=== PATIENT | male | born 1990 | race Caucasian/White ===

== ENCOUNTER 2018-11-28 06:58 | Emergency (ER) | payer OTHER ==
[2018-11-28] MEDS ORDERED: Zofran 4 MG/2 ML VIAL IV ONE (07:16)
[2018-11-28] MEDS ORDERED: PROTONIX 40 MG IV IV ONE (07:16)
[2018-11-28] MEDS ORDERED: Sodium Chloride 0.9% 1000 ML 1,000 ML IV STA (07:16)
[2018-11-28] MEDS ORDERED: Pepcid 20 MG VIAL IV ONE ×2 (07:19→07:42)
[2018-11-28] MEDS ORDERED: Sodium Chloride 0.9% 1000 ML 1,000 ML ONE (07:42)
[2018-11-28] MEDS ORDERED: Zofran 4 MG/2 ML VIAL ONE (07:42)
[2018-11-28] MEDS ORDERED: Protonix 40MG Tablet ONE (07:42)
[2018-11-28] MEDS ORDERED: Protonix 40MG Tablet PO ONE (07:44)
[2018-11-28 07:48] LABS: BASOPHIL % 0.3 % (0.0-0.4); Basophil (Absolute #) 0.04 (0-0.4); Eosinophil % 2.8 % (0.00-5.0); Eosinophil (Absolute #) 0.33 (0-0.5); Granulocyte Absolute (ANC) 8.27 (1.4-6.9); Granulocytes % 69.3 % (36.0-66.0); Hemoglobin 15.6 gm/dl (12.5-18.0); Lymphocyte (Absolute #) 2.59 (1.0-4.6); Lymphocytes % 21.7 % (24.0-44.0); Mean Cell Volume 88.3 fl (78-100); Mean Corpuscular Hgb Concent. 36.3 g/dl (32-36); Mean Platelet Volume 9.9 fl (6-9.5); Monocytes % 5.9 % (0.0-12.0); Platelet Count 223 K/mm3 (150-450); Red Blood Count 4.87 M/mm3 (4.1-5.6); Red Cell Distribution Width 12.1 % (11.5-14.0); White Blood Count 11.9 K/mm3 (4.0-10.5)
[2018-11-28 08:00] LABS: ALBUMIN 4.9 g/dL (3.5-5.0); ALKALINE PHOSPHATASE 57 U/L (38-126); BLOOD UREA NITROGEN 19 mg/dL (9-20); CHLORIDE 107 mmol/L (98-107); Calcium 10.3 mg/dL (8.4-10.2); Carbon Dioxide 25 mmol/L (22-30); Creatinine 1 0.87 mg/dL (0.66-1.25); Glucose 93 mg/dL (74-106); Potassium 3.7 mmol/L (3.5-5.1); SGOT/AST 25 U/L (17-59); SGPT/ALT 26 U/L (0-50); SODIUM 141 mmol/L (137-145); Total Protein 8.3 g/dL (6.3-8.2)
[2018-11-28 08:02] LABS: Appearance CLEAR (CLEAR); Bilirubin NEGATIVE (NEGATIVE); Blood NEGATIVE Ery/ul (0-5); Glucose NEGATIVE (NEGATIVE); Ketones NEGATIVE (NEGATIVE); Leukocyte Esterase NEGATIVE (NEGATIVE); Mucus SLIGHT /HPF (NEGATIVE); Nitrite NEGATIVE (NEGATIVE); Protein,Urine Dip NEGATIVE (Negative); Specific Gravity 1.016 (1.005-1.025); Urobilinogen NEGATIVE mg/dL (0-1)
[2018-11-28] MEDS ORDERED: Cipro 500 MG PO STA (08:54)
[2018-11-28] MEDS ORDERED: Cipro 500 MG ONE (09:01)
--- NOTE | 2018-11-28 09:01 | ERPHSYRPT ---
- History of Present Illness Source: patient Exam Limitations: no limitations Patient Subjective Stated Complaint: pt reports pain to the left testicle starting 3 days ago, pt denies any urinary symptoms. pt also reports approx 3 weeks ago he began having nausea and diarrhea. Triage Nursing Assessment: pt is aox3, pupils perrl, pt appears in pain, afebrile, resps easy and non labored, radial pulses strong and equal, abd soft non tender, bowel sounds present and normoactive x 4, pt skin pale warm dry. no swelling or redness noted to the scrotum, skin is intact, no drainage noted. Physician History: Pt is a 28 y/o male that presented to the ED with pain in his L testicle. Pt states, had the pain for about 3 weeks, and now got worse. He woke up with the pain today, and could not tolerate it anymore. Pt denies F/C/S. Has some dysuria, but no frequency or urgency. No hematiria. No CVX tenderness. Timing/Duration: week(s) Activites at Onset: none Quality: sharpness, stabbing Onset Location: left testicle Pain Radiation: none Severity of Pain-Max: moderate Severity of Pain-Current: moderate Modifying Factors: Improves With: nothing (Pt refuses all pain meds) Associated Symptoms: dysuria Prior abdominal problems: none Allergies/Adverse Reactions: Penicillins Allergy (Verified 11/28/18 07:40) Sulfa (Sulfonamide Antibiotics) Allergy (Verified 11/28/18 07:40) Hx Tetanus, Diphtheria Vaccination/Date Given: Yes Hx Influenza Vaccination/Date Given: No Hx Pneumococcal Vaccination/Date Given: No Immunizations Up to Date: Yes - Past Medical History Pertinent Past Medical History: Yes Other Medical History: tumors removed from scrotum as an , benign tumors removed from back. psoriasis - Past Surgical History Past Surgical History: Yes - Social History Smoking Status: Current every day smoker Drug Use: none Patient Lives Alone: No - Review of Systems Constitutional: No Fever, No Chills Eyes: No Symptoms Ears, Nose, & Throat: No Symptoms Respiratory: No Cough, No Dyspnea Cardiac: No Chest Pain, No Edema, No Syncope Abdominal/Gastrointestinal: No Abdominal Pain, No Nausea, No Vomiting, No Diarrhea Genitourinary Symptoms: Dysuria, Testicle Pain (On the L) Musculoskeletal: No Back Pain, No Neck Pain Neurological: No Dizziness, No Focal Weakness, No Sensory Changes - Nursing Vital Signs Nursing Vital Signs: Initial Vital Signs Temperature 98 F 11/28/18 07:05 Pulse Rate 83 11/28/18 07:05 Respiratory Rate 20 11/28/18 07:05 Blood Pressure 142/87 11/28/18 07:05 O2 Sat by Pulse Oximetry 97 11/28/18 07:05 Pain Scale Pain Intensity 6 - Physical Exam General Appearance: no apparent distress, alert Eye Exam: PERRL/EOMI Ears, Nose, Throat Exam: pharynx normal, moist mucous membranes Neck Exam: normal inspection, supple Respiratory Exam: normal breath sounds, lungs clear Cardiovascular Exam: regular rate/rhythm, No edema Gastrointestinal/Abdomen Exam: soft, No tenderness Male Genital Exam: normal genitalia, no hernia, testicular tenderness (L) Back Exam: normal inspection, No CVA tenderness Extremity Exam: normal inspection, normal range of motion, No pedal edema Neurologic Exam: alert, oriented x 3, cooperative, sensation nml, No motor deficits SpO2: 98 - Radiology Ultrasound Exam Scrotal Ultrasound: discussed w/radiologist (mild orchitis on the L) Ordered Tests: Active Orders 24 hr Category Date Time Status IV Insertion STAT Care 11/28/18 07:42 Active TESTICLE [US] Stat Exams 11/28/18 Ordered CBC W DIFF Stat Lab 11/28/18 07:42 Completed CMP Stat Lab 11/28/18 07:42 Completed UA W/RFX UR CULTURE Stat Lab 11/28/18 07:42 Completed Medication Summary Generic Name Dose Route Start Last Admin Trade Name Freq PRN Reason Stop Dose Admin Ciprofloxacin 500 mg 11/28/18 08:54 Cipro 500 Mg PO 11/28/18 08:55 ONCE STA Discontinued Medications Generic Name Dose Route Start Last Admin Trade Name Freq PRN Reason Stop Dose Admin Famotidine 40 mg 11/28/18 07:19 11/28/18 07:50 Pepcid 20 Mg Vial IV 11/28/18 07:20 40 mg STAT ONE Administration Famotidine Confirm 11/28/18 07:42 Pepcid 20 Mg Vial Administered 11/28/18 07:43 Dose 40 mg IV .STK-MED ONE Sodium Chloride 1,000 mls @ 999 mls/hr 11/28/18 07:16 11/28/18 07:49 Sodium Chloride 0.9% 1000 Ml IV 11/28/18 08:16 999 mls/hr .Q1H1M STA Administration Sodium Chloride Confirm 11/28/18 07:42 Sodium Chloride 0.9% 1000 Ml Administered 11/28/18 07:43 Dose 1,000 mls @ ud .ROUTE .STK-MED ONE Ondansetron HCl 4 mg 11/28/18 07:16 11/28/18 07:50 Zofran 4 Mg/2 Ml Vial IV 11/28/18 07:17 4 mg STAT ONE Administration Ondansetron HCl Confirm 11/28/18 07:42 Zofran 4 Mg/2 Ml Vial Administered 11/28/18 07:43 Dose 4 mg .ROUTE .STK-MED ONE Pantoprazole Sodium 40 mg 11/28/18 07:16 11/28/18 07:56 Protonix 40 Mg Iv IV 11/28/18 07:17 Not Given STAT ONE Pantoprazole Sodium Confirm 11/28/18 07:42 Protonix 40mg Tablet Administered 11/28/18 07:43 Dose 40 mg .ROUTE .STK-MED ONE Pantoprazole Sodium 40 mg 11/28/18 07:44 11/28/18 07:50 Protonix 40mg Tablet PO 11/28/18 07:45 40 mg STAT ONE Administration Lab/Rad Data: Laboratory Result [facility] 11/28/18 07:42 11/28/18 07:42 Laboratory Results 11/28/18 11/28/18 11/28/18 Range/Units 07:42 07:42 07:42 WBC 11.9 H (4.0-10.5) K/mm3 RBC 4.87 (4.1-5.6) M/mm3 Hgb 15.6 (12.5-18.0) gm/dl Hct 43.0 (42-50) % MCV 88.3 (78-100) fl MCH 32.0 (26-32) pg MCHC 36.3 H (32-36) g/dl RDW 12.1 (11.5-14.0) % Plt Count 223 (150-450) K/mm3 MPV 9.9 H (6-9.5) fl Gran % 69.3 H (36.0-66.0) % Eos # (Auto) 0.33 (0-0.5) Absolute Lymphs (auto) 2.59 (1.0-4.6) Absolute Monos (auto) 0.70 (0.0-1.3) Lymphocytes % 21.7 L (24.0-44.0) % Monocytes % 5.9 (0.0-12.0) % Eosinophils % 2.8 (0.00-5.0) % Basophils % 0.3 (0.0-0.4) % Absolute Granulocytes 8.27 H (1.4-6.9) Basophils # 0.04 (0-0.4) Sodium 141 (137-145) mmol/L Potassium 3.7 (3.5-5.1) mmol/L Chloride 107 (98-107) mmol/L Carbon Dioxide 25 (22-30) mmol/L Anion Gap 13.0 (5-15) MEQ/L BUN 19 (9-20) mg/dL Creatinine 0.87 (0.66-1.25) mg/dL Estimated GFR > 60.0 ML/MIN Glucose 93 (74-106) mg/dL Calcium 10.3 H (8.4-10.2) mg/dL Total Bilirubin 0.60 (0.2-1.3) mg/dL AST 25 (17-59) U/L ALT 26 (0-50) U/L Alkaline Phosphatase 57 (38-126) U/L Serum Total Protein 8.3 H (6.3-8.2) g/dL Albumin 4.9 (3.5-5.0) g/dL Urine Color YELLOW (YELLOW) Urine Appearance CLEAR (CLEAR) Urine pH 5.0 (5-6) Ur Specific [place] 1.016 (1.005-1.025) Urine Protein NEGATIVE (Negative) Urine Ketones NEGATIVE (NEGATIVE) Urine Blood NEGATIVE (0-5) Hari/ul Urine Nitrite NEGATIVE (NEGATIVE) Urine Bilirubin NEGATIVE (NEGATIVE) Urine Urobilinogen NEGATIVE (0-1) mg/dL Ur Leukocyte Esterase NEGATIVE (NEGATIVE) Urine WBC (Auto) NONE (0-5) /HPF Urine RBC (Auto) NONE (0-2) /HPF U Epithel Cells (Auto) NONE (FEW) /HPF Urine Bacteria (Auto) NONE (NEGATIVE) /HPF Urine Mucus (Auto) SLIGHT (NEGATIVE) /HPF Urine Culture Reflexed NO (NO) Urine Glucose NEGATIVE (NEGATIVE) mg/dL - Progress Progress: unchanged Progress Note: 11/28/18 09:00 Pt was seen and examined. Lab work showed mild leukocytosis. UA was normal. US showed mild orchitis. Will start pt on ABX, Cipro 500mg BID. Pt should f/u with PCP or urologist as out pt. Discussed with .: Nisreen Will see patient in: office Counseled pt/family regarding: need for follow-up - Departure Departure Disposition: Home Clinical Impression: Orchitis of left testicle Condition: Stable Critical Care Time: No Referrals: CHASE CORNEJO [Primary Care Provider] - Additional Instructions: Finish Cipro as ordered. F/U with PCP, or urologist. Prescriptions: Ciprofloxacin [Cipro 500 MG] 500 mg PO BIDAC #14 tablet
[2018-11-28 09:27] VITALS: BP 119/64; PULSE 67; O2SAT 99
--- NOTE | 2018-11-28 20:49 | XRAY ---
Indication: Left testicle pain 3 days. Two-dimensional testicular sonogram performed. Comparison: None Both testicles homogeneous in echogenicity with color Doppler flow. Right testicle measures 4.8 x 2.6 x 2.8 cm and the left measures 4.6 x 2.8 x 2.1 cm. Left testicle also demonstrates mild hyperemic color flow favoring orchitis. Left and right epididymis sonographically unremarkable. No suspicious extratesticular mass or hydrocele. There is incidental left-sided varicocele. Impression: 1. Left-sided orchitis and left-sided varicocele as detailed. 2. Remaining testicular sonogram is negative. Comment: Preliminary report was given.
== END 2018-11-28 09:25 | disposition home or self-care (01) ==
LOC: ED 06:58
DX: N45.2 Orchitis (principal); N50.812 Left testicular pain
CPT/HCPCS: 36000; 36415; 76870; 80053; 81001; 85025; 96374; 96375; 99284; J2405; A9270-GY

== ENCOUNTER 2020-11-11 15:07 | Emergency (ER) | payer OTHER ==
[2020-11-11 15:23] VITALS: PULSE 66
[2020-11-11] MEDS ORDERED: XYLOCAINE VISCOUS 2% 20 ML CUP PO ONE (15:30)
--- NOTE | 2020-11-11 15:35 | ERPHSYRPT ---
- History of Present Illness Time Seen by Provider: 11/11/20 15:20 Source: patient Exam Limitations: no limitations Patient Subjective Stated Complaint: Pt began having soreness in his mouth about 3 weeks ago and then on his right face began to swell Triage Nursing Assessment: Pt brought to the ER by his , damon wnl, rates pain as 5/10, right side of face is swollen, pt states that he has a broken tooth on top right, denies any other issues Physician History: Patient is a 30-year-old male with complaint of tooth pain for 2 weeks right upper maxillary molar the last 2 days has noted swelling of the right side of the face. Timing/Duration: gradual onset Severity: moderate ENT Location: mouth, dental Prearrival Treatment: no prearrival treatment Modifying Factors: Improves With: activity Associated Symptoms: denies symptoms Allergies/Adverse Reactions: Penicillins Allergy (Verified 11/11/20 15:09) Sulfa (Sulfonamide Antibiotics) Allergy (Verified 11/11/20 15:09) Hx Tetanus, Diphtheria Vaccination/Date Given: Yes Hx Influenza Vaccination/Date Given: No Hx Pneumococcal Vaccination/Date Given: No Travel Risk - International Travel Have you traveled outside of the country in past 3 weeks: No - Coronavirus Screening Are you exhibiting any of the following symptoms?: No Close contact with a COVID-19 positive Pt in past 14-21 Days: No - Vaccine Status Have you recieved a Covid-19 vaccination: No - Review of Systems Constitutional: No Fever, No Chills Eyes: No Symptoms Ears, Nose, & Throat: No Symptoms Respiratory: No Cough, No Dyspnea Cardiac: No Chest Pain, No Edema, No Syncope Abdominal/Gastrointestinal: No Abdominal Pain, No Nausea, No Vomiting, No Diarrhea Genitourinary Symptoms: No Dysuria Musculoskeletal: No Back Pain, No Neck Pain Skin: No Rash Neurological: No Dizziness, No Focal Weakness, No Sensory Changes Psychological: No Symptoms Endocrine: No Symptoms All Other Systems: Reviewed and Negative - Past Medical History Pertinent Past Medical History: Yes Other Medical History: tumors removed from scrotum as an , benign tumors removed from back. psoriasis - Past Surgical History Past Surgical History: Yes - Social History Smoking Status: Current every day smoker Exposure to second hand smoke: Yes Drug Use: none Patient Lives Alone: No - Nursing Vital Signs Nursing Vital Signs: Initial Vital Signs Temperature 98.4 F 11/11/20 15:12 Pulse Rate 66 11/11/20 15:12 Blood Pressure 121/80 11/11/20 15:12 O2 Sat by Pulse Oximetry 99 11/11/20 15:12 Pain Scale Pain Intensity 5 - Physical Exam General Appearance: moderate distress, alert Eye Exam: bilateral eye: PERRL, EOMI Ear Exam: bilateral ear: auricle normal, canal normal, TM normal Nasal Exam: normal inspection Throat Exam: dental tenderness (Patient has a fractured right maxillary molar which is very tender there is swelling over the area obvious abscess) Neck Exam: normal inspection, non-tender, supple Cardiovascular/Respiratory Exam: chest non-tender, No no respiratory distress Neurologic Exam: alert, oriented x 3, cooperative Skin Exam: normal color, warm, dry SpO2 Interpretation: normal SpO2: 99 O2 Delivery: Room Air - Course Nursing assessment & vital signs reviewed: Yes - Progress Progress: unchanged - Departure Departure Disposition: Home Clinical Impression: Dental abscess Condition: Stable Critical Care Time: No Instructions: Tooth Abscess (DC) Prescriptions: clindamycin HCL [Cleocin HCl] 300 mg PO TID 10 Days #30 capsule
[2020-11-11] MEDS ORDERED: XYLOCAINE HCl Viscous ONE (15:45)
[2020-11-11 15:51] VITALS: BP 124/80; O2SAT 100
== END 2020-11-11 15:50 | disposition home or self-care (01) ==
LOC: ED 15:07
DX: K04.7 Periapical abscess without sinus (principal)
CPT/HCPCS: 99283; A9270-GY

== ENCOUNTER 2022-09-03 23:20 | Emergency (ER) | payer OTHER | END 2022-09-04 01:24 | disposition left against medical advice (07) | LOC: ED 23:20 | DX: Z53.21 Procedure and treatment not carried out due to patient leaving prior to being seen by health care provider (principal) ==

== ENCOUNTER 2022-09-04 18:46 | Emergency (ER) | payer OTHER ==
[2022-09-04] MEDS ORDERED: XYLOCAINE 1%/Epi 1:100000 MDV 20 ML ONE (19:12)
[2022-09-04] MEDS ORDERED: TORAdol 30 mg Injection IM ONE (19:47)
--- NOTE | 2022-09-04 19:48 | ERPHSYRPT ---
- History of Present Illness Time Seen by Provider: 09/04/22 19:10 Source: patient Exam Limitations: no limitations Patient Subjective Stated Complaint: pt states "I have a abscess on my ass." Triage Nursing Assessment: pt ambulated into the er; pt is axo x4; c/o abcess; abcess is present to left buttock; skin is hot to the touch; tenderness present to left buttock; no drainage present; vitals wnl Physician History: Pt c/o buttock pain and swelling, worse when sitting. Had some redness and discharge. T max of 100 at home No observed sinus tracts around the area. Has hx of of similar presentation requiring I&D 6 years ago Timing/Duration: day(s) (3) Quality: painful Severity: severe Location: other (left upper buttock near cleft) Possible Causes: no cause identified Modifying Factors: Improves With: other (sitting) Associated Symptoms: fever Allergies/Adverse Reactions: Penicillins Allergy (Verified 09/04/22 18:55) Sulfa (Sulfonamide Antibiotics) Allergy (Verified 09/04/22 18:55) Home Medications: Ibuprofen 200 mg [Motrin 200 mg] 400 mg PO BID 09/04/22 [History] Hx Tetanus, Diphtheria Vaccination/Date Given: Yes Hx Influenza Vaccination/Date Given: No Hx Pneumococcal Vaccination/Date Given: No Travel Risk - International Travel Have you traveled outside of the country in past 3 weeks: No - Coronavirus Screening Are you exhibiting any of the following symptoms?: No Close contact with a COVID-19 positive Pt in past 14-21 Days: No - Vaccine Status Have you recieved a Covid-19 vaccination: No - Review of Systems Constitutional: Fever Respiratory: No Symptoms Cardiac: No Symptoms Abdominal/Gastrointestinal: No Symptoms Genitourinary Symptoms: No Symptoms Skin: Other (per HPI) All Other Systems: Reviewed and Negative - Past Medical History Pertinent Past Medical History: Yes Other Medical History: tumors removed from scrotum as an , benign tumors removed from chest. psoriasis - Past Surgical History Past Surgical History: Yes - Social History Smoking Status: Current every day smoker How long have you smoked: 10 Exposure to second hand smoke: Yes Drug Use: none Patient Lives Alone: No - Nursing Vital Signs Nursing Vital Signs: Initial Vital Signs Temperature 96.3 F 09/04/22 18:56 Pulse Rate 100 H 09/04/22 18:56 Respiratory Rate 18 09/04/22 18:56 Blood Pressure 117/64 09/04/22 18:56 O2 Sat by Pulse Oximetry 98 09/04/22 18:56 Pain Scale Pain Intensity 7 - Physical Exam General Appearance: mild distress, alert Eye Exam: eyes nml inspection Ears, Nose, Throat Exam: normal ENT inspection Neck Exam: normal inspection Skin Exam: other (area near cleft of buttocks w/ surrounding erythema, warmth, tenderness and fluctuance.) SpO2 Interpretation: normal SpO2: 98 O2 Delivery: Room Air Procedures - Incision and Drainage Time of Procedure: 19:30 Site: cleft of buttocks Anesthesia: 1% lidocaine w/epi cc's of anesthesia: 4 Blade Size: 11 I & D Procedure: betadine prep, sterile drapes applied, culture obtained, gauze wick placed Results: large amount pus Progress: With abscess. I&D performed. Healing by secondary intention. Abx: Clindamycin due to allergies. Analgesics. - Course Nursing assessment & vital signs reviewed: Yes Ordered Tests: Active Orders 24 hr Category Date Time Status CULTURE,WOUND Stat Lab 09/04/22 20:00 Ordered Medication Summary Discontinued Medications Generic Name Dose Route Start Last Admin Trade Name Freq PRN Reason Stop Dose Admin Ketorolac Tromethamine 60 mg 09/04/22 19:47 09/04/22 19:51 Ketorolac Tromethamine 30 Mg/Ml Inj IM 09/04/22 19:48 60 mg STAT ONE Administration Ketorolac Tromethamine Confirm 09/04/22 19:50 Ketorolac Tromethamine 30 Mg/Ml Inj Administered 09/04/22 19:51 Dose 60 mg .ROUTE .STK-MED ONE Lidocaine/Epinephrine Confirm 09/04/22 19:12 Lidocaine Hcl/Epinephrine 1% 20 Ml Administered 09/04/22 19:13 Dose 5 ml .ROUTE .STK-MED ONE - Progress Progress: improved, pain not gone completely Counseled pt/family regarding: diagnosis, need for follow-up Medical Desision Making - Diagnostic Testing Diagnostic test were ordered, analyzed, and reviewed by me: No - Risk of complications The pt has a mod risk of morbidity or mortality based on: Need for prescription drug management, Need for minor surgical intervention in patient with know risk factors - Departure Departure Disposition: Home Clinical Impression: Pilonidal cyst with abscess Condition: Good Critical Care Time: No Referrals: CHASE GAVIRIA [Primary Care Provider] - Follow Up with PCP/3 days Instructions: Pilonidal Cyst (DC) Prescriptions: clindamycin HCL [Cleocin HCl] 300 mg PO Q6H 10 Days #40 cap
[2022-09-04] MEDS ORDERED: TORAdol 30 mg Injection ONE (19:50)
[2022-09-04 19:57] VITALS: BP 128/71; PULSE 87
[2022-09-04 20:16] VITALS: O2SAT 98
== END 2022-09-04 20:13 | disposition home or self-care (01) ==
LOC: ED 18:46
DX: L05.01 Pilonidal cyst with abscess (principal); R50.9 Fever, unspecified; Z28.310 Unvaccinated for COVID-19; Z72.0 Tobacco use
CPT/HCPCS: 10080; 87070; 96372; 99283; J1885

== ENCOUNTER 2022-10-22 18:18 | Emergency (ER) | payer OTHER ==
[2022-10-22] MEDS ORDERED: Sodium Chloride 0.9% 1000 ML 1,000 ML IV STA (19:24)
[2022-10-22] MEDS ORDERED: CLINDAMYCIN-D5W 900 MG/50 ML*** 900 MG/50 ML BAG IV STA (19:26)
--- NOTE | 2022-10-22 19:33 | ERPHSYRPT ---
- History of Present Illness Time Seen by Provider: 10/22/22 19:29 Source: patient Exam Limitations: no limitations Patient Subjective Stated Complaint: C/O abscess to left inner buttocks that started 2-3 days ago Triage Nursing Assessment: Patient ambulated back to ER. Patient showing s/s of pain; grimacing, moving slowly. No SOB. He is alert and oriented. Left inner buttocks is red, hot, swollen, foul smelling. Physician History: Patient is a 32-year-old male presents to our ED for evaluation of an abscess at the junction between his left proximal scrotum and the rectum just left to the perineum. Symptoms started 2 to 3 days ago. Symptoms have been progressive. Patient states the pain is such that he is having difficulty walking. No fever. No trauma. No nausea vomiting or diaphoresis. Patient denies abdominal pain. Patient states he has had a similar infection in the past. Abscess resolved with antibiotics. No surgery indicated at that time. Patient otherwise feels well. He denies any significant past medical history. Significant other at bedside. They voiced no other complaints or concerns at this time. Patient declined pain medication Portions of this note were created with voice recognition technology. There may be grammatical, spelling, punctuation or sound alike errors Timing/Duration: today Severity: moderate Modifying Factors: Improves With: movement, other (Walking and palpation reproduces pain to the area of abscess) Associated Symptoms: denies symptoms Allergies/Adverse Reactions: Penicillins Allergy (Verified 10/22/22 18:39) Sulfa (Sulfonamide Antibiotics) Allergy (Verified 10/22/22 18:39) Home Medications: Albuterol Sulfate [Albuterol Sulfate Hfa] 2 puff PO Q4-6HPRN PRN 10/22/22 [History] Hx Tetanus, Diphtheria Vaccination/Date Given: Yes Hx Influenza Vaccination/Date Given: No Hx Pneumococcal Vaccination/Date Given: No Immunizations Up to Date: Yes Travel Risk - International Travel Have you traveled outside of the country in past 3 weeks: No - Coronavirus Screening Are you exhibiting any of the following symptoms?: No Close contact with a COVID-19 positive Pt in past 14-21 Days: No - Vaccine Status Have you recieved a Covid-19 vaccination: No - Review of Systems Constitutional: No Symptoms, No Fever, No Chills Eyes: No Symptoms Ears, Nose, & Throat: No Symptoms Respiratory: No Symptoms, No Cough, No Dyspnea Cardiac: No Symptoms, No Chest Pain, No Edema, No Syncope Abdominal/Gastrointestinal: No Symptoms, No Abdominal Pain, No Nausea, No Vomiting, No Diarrhea Genitourinary Symptoms: No Symptoms, No Dysuria Musculoskeletal: No Symptoms, No Back Pain, No Neck Pain Skin: No Symptoms, No Rash Neurological: No Symptoms, No Dizziness, No Focal Weakness, No Sensory Changes Psychological: No Symptoms Endocrine: No Symptoms Hematologic/Lymphatic: No Symptoms Immunological/Allergic: No Symptoms All Other Systems: Reviewed and Negative - Past Medical History Pertinent Past Medical History: Yes Other Medical History: 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, benign tumors removed from chest, psoriasis - Past Surgical History Past Surgical History: Yes - Social History Smoking Status: Current every day smoker How long have you smoked: 12 years Exposure to second hand smoke: Yes Drug Use: none Patient Lives Alone: No - Nursing Vital Signs Nursing Vital Signs: Initial Vital Signs Temperature 98.5 F 10/22/22 18:42 Pulse Rate 72 10/22/22 18:42 Respiratory Rate 18 10/22/22 18:42 Blood Pressure 114/75 10/22/22 18:42 O2 Sat by Pulse Oximetry 98 10/22/22 18:42 Pain Scale Pain Intensity 8 - Physical Exam General Appearance: no apparent distress, alert Eye Exam: PERRL/EOMI, eyes nml inspection Ears, Nose, Throat Exam: normal ENT inspection, TMs normal, pharynx normal, moist mucous membranes Neck Exam: normal inspection, non-tender, supple, full range of motion Respiratory Exam: normal breath sounds, lungs clear, airway intact, No respiratory distress Cardiovascular Exam: regular rate/rhythm, normal heart sounds, normal peripheral pulses Gastrointestinal/Abdomen Exam: soft, normal bowel sounds, No tenderness, No mass Rectal Exam: other (There is an area of redness tenderness swelling at the junction between the proximal left hemiscrotum and left lateral aspect of the rectum to the left of the perineum. No open or draining lesions) Back Exam: normal inspection, normal range of motion, No CVA tenderness, No vertebral tenderness Extremity Exam: normal inspection, normal range of motion, pelvis stable Neurologic Exam: alert, oriented x 3, cooperative, normal mood/affect, nml cerebellar function, nml station & gait, sensation nml, No motor deficits Skin Exam: normal color, warm, dry, No rash Lymphatic Exam: No adenopathy SpO2 Interpretation: normal SpO2: 98 O2 Delivery: Room Air - Course Nursing assessment & vital signs reviewed: Yes - CT Exams Abdomen/Pelvis CT Interpretation: Tele-radiologist Report (No chronic. Mild left gluteal cutaneous cellulitis without emphysema or abscess. A few small bilateral ingui nal nodes. Largest 1.5 cm otherwise normal abdomen pelvis.) Ordered Tests: Active Orders 24 hr Category Date Time Status IV Insertion STAT Care 10/22/22 19:24 Active Pulse Oximetry (ED) STAT Care 10/22/22 19:24 Active ABDOMEN AND PELVIS W CONTRAST [CT] Stat Exams 10/22/22 19:24 Taken BLOOD CULTURE Stat Lab 10/22/22 19:55 Received CBC W DIFF Stat Lab 10/22/22 19:50 Completed CMP Stat Lab 10/22/22 19:50 Completed Lactic Acid Stat Lab 10/22/22 19:53 Completed Medication Summary Discontinued Medications Generic Name Dose Route Start Last Admin Trade Name Jeromeq PRN Reason Stop Dose Admin Sodium Chloride 1,000 mls @ 999 mls/hr 10/22/22 19:24 10/22/22 21:01 Sodium Chloride 0.9% 1000 Ml IV 10/22/22 20:24 Infused .Q1H1M STA Infusion Clindamycin HCl/Dextrose 900 mg in 50 mls @ 100 mls/hr 10/22/22 19:26 10/22/22 20:28 Clindamycin-D5w 900 Mg/50 Ml IV 10/22/22 19:55 Infused STAT STA Infusion Sodium Chloride Confirm 10/22/22 19:54 Sodium Chloride 0.9% 1000 Ml Administered 10/22/22 19:55 Dose 1,000 mls @ ud .ROUTE .STK-MED ONE Clindamycin HCl/Dextrose Confirm 10/22/22 19:55 Clindamycin-D5w 900 Mg/50 Ml Administered 10/22/22 19:56 Dose 900 mg in 50 mls @ ud IV .STK-MED ONE Lab/Rad Data: Laboratory Result Diagrams 10/22/22 19:50 10/22/22 19:50 Laboratory Results 10/22/22 10/22/22 10/22/22 Range/Units 19:53 19:50 19:50 WBC 13.0 H (4.0-10.5) x10^3/uL RBC 4.30 (4.1-5.6) x10^6/uL Hgb 13.4 (12.5-18.0) g/dL Hct 39.0 L (42-50) % MCV 90.7 (78-100) fL MCH 31.2 (26-32) pg MCHC 34.4 (32-36) g/dL RDW 12.0 (11.5-14.0) % Plt Count 274 (150-450) x10^3/uL MPV 9.1 (7.5-11.0) fL Gran % 74.6 H (36.0-66.0) % Immature Gran % (Auto) 0.3 (0.00-0.4) % Nucleat RBC Rel Count 0.0 (0.00-0.1) % Eos # (Auto) 0.29 (0-0.5) x10^3/uL Immature Gran # (Auto) 0.04 H (0.00-0.03) x10^3u/L Absolute Lymphs (auto) 2.20 (1.0-4.6) x10^3/uL Absolute Monos (auto) 0.70 (0.0-1.3) x10^3/uL Absolute Nucleated RBC 0.00 (0.00-0.01) x10^3u/L Lymphocytes % 17.0 L (24.0-44.0) % Monocytes % 5.4 (0.0-12.0) % Eosinophils % 2.2 (0.00-5.0) % Basophils % 0.5 (0.0-0.4) % Absolute Granulocytes 9.66 H (1.4-6.9) x10^3/uL Basophils # 0.06 (0-0.4) x10^3/uL Sodium 142 (137-145) mmol/L Potassium 3.8 (3.5-5.1) mmol/L Chloride 107 (98-107) mmol/L Carbon Dioxide 25 (22-30) mmol/L Anion Gap 13.8 (5-15) MEQ/L BUN 12 (9-20) mg/dL Creatinine 0.70 (0.66-1.25) mg/dL Estimated GFR > 60.0 ML/MIN Glucose 87 (74-106) mg/dL Lactic Acid 1.1 (0.4-2.0) Calcium 9.2 (8.4-10.2) mg/dL Total Bilirubin 0.40 (0.2-1.3) mg/dL AST 32 (17-59) U/L ALT 25 (0-50) U/L Alkaline Phosphatase 68 (38-126) U/L Serum Total Protein 7.8 (6.3-8.2) g/dL Albumin 4.4 (3.5-5.0) g/dL - Progress Progress: improved Progress Note: Patient 32-year-old male presents emergency department for evaluation of cellulitis to the left lower gluteal area. Physical exam reveals an area of induration and cellulitis. CT scan ordered. There is a localized area of cellulitis. No tracking or perirectal abscess. Blood cultures obtained. Results pending. CBC reveals a leukocytosis. CMP within normal limits. Lactic acid negative. Patient received a dose of IV clindamycin. A prescription for clindamycin was forwarded to patient's pharmacy. Patient also received a liter of normal saline. Patient declined pain medication. Will discharge home. Patient agrees to follow-up with his primary care doctor within 48 hours for reevaluation. Portions of this note were created with voice recognition technology. There may be grammatical, spelling, punctuation or sound alike errors Complexity of problem addressed is moderate new diagnosis with uncertain prognosis. No critical care time Complex of data reviewed and analyzed is moderate. Dr. Hurtado independently reviewed and analyzed laboratory studies, reviewed the CT scan report and co rrelated the results clinically to establish a plan of care. Risk of complication and or risk morbidity/mortality of patient management is moderate. Patient received IV fluids, IV antibiotics. A prescription for oral antibiotic was forwarded to patient's pharmacy. We will discharge home. Patient agrees to follow-up with his primary care doctor within 48 hours. Patient agrees to follow-up and take his antibiotic medications as recommended. Feoh-ucw-elvople analgesics as needed. Patient understands importance of good hygiene specially during the hot summer days. Patient at bedside. They voiced no other complaints or concerns at this time. Portions of this note were created with voice recognition technology. There may be grammatical, spelling, punctuation or sound alike errors 10/22/22 21:37 Counseled pt/family regarding: lab results, diagnosis, need for follow-up, rad results - Departure Departure Disposition: Home Clinical Impression: Cellulitis, Leukocytosis Condition: Stable Critical Care Time: No Referrals: CHASE GAVIRIA [Primary Care Provider] - Follow up/PCP as directed Additional Instructions: Discharge/Care Plan TEE JENNINGS was seen on 10/22/22 in the Emergency Room. The patient was counseled regarding Diagnosis,Lab results, Imaging studies, need for follow up and when to return to the Emergency Room. Prescriptions given: Discharge Note I have spoken with the patient and/or caregivers. I have explained the patient's condition, diagnosis and treatment plan based on the information available to me at this time. I have answered the patient's and/or caregiver's questions and addressed any concerns. The patient and/or caregivers have as good understanding of the patient's diagnosis, condition and treatment plan as can be expected at this point. The vital signs have been stable. The patient's condition is stable and appropriate for discharge from the emergency department. The patient will pursue further outpatient evaluation with the primary care physician or other designated or consulting physician as outlined in the discharge instructions. The patient and/or caregivers are agreeable to this plan of care and follow-up instructions have been explained in detail. The patient and/or caregivers have received these instruction. The patient/and or caregivers are aware that any significant change in condition or worsening of symptoms should prompt an immediate return to this or the closest emergency department or call 911. Prescriptions: Clindamycin HCl 150 mg [Cleocin 150 mg Capsule] 2 cap PO QID #56 cap
[2022-10-22] MEDS ORDERED: Sodium Chloride 0.9% 1000 ML 1,000 ML ONE (19:54)
[2022-10-22] MEDS ORDERED: CLINDAMYCIN-D5W 900 MG/50 ML*** 900 MG/50 ML BAG IV ONE (19:55)
[2022-10-22 20:00] LABS: Absolute Neutrophil Ct (ANC) 9.66 x10^3/uL (1.4-6.9); BASOPHIL % 0.5 % (0.0-0.4); Basophil (Absolute #) 0.06 x10^3/uL (0-0.4); Eosinophil % 2.2 % (0.00-5.0); Eosinophil (Absolute #) 0.29 x10^3/uL (0-0.5); Hemoglobin 13.4 g/dL (12.5-18.0); IMMATURE GRAN # 0.04 x10^3u/L (0.00-0.03); IMMATURE GRAN % 0.3 % (0.00-0.4); Mean Cell Volume 90.7 fL (78-100); Mean Corpuscular Hemoglobin 31.2 pg (26-32); Mean Corpuscular Hgb Concent. 34.4 g/dL (32-36); Mean Platelet Volume 9.1 fL (7.5-11.0); Monocytes % 5.4 % (0.0-12.0); Neutrophil % 74.6 % (36.0-66.0); Platelet Count 274 x10^3/uL (150-450)
[2022-10-22 20:13] LABS: ALBUMIN 4.4 g/dL (3.5-5.0); ALKALINE PHOSPHATASE 68 U/L (38-126); ANION GAP 13.8 MEQ/L (5-15); BLOOD UREA NITROGEN 12 mg/dL (9-20); CHLORIDE 107 mmol/L (98-107); Calcium 9.2 mg/dL (8.4-10.2); Carbon Dioxide 25 mmol/L (22-30); EST GLOMERULAR FILTRATION RATE > 60.0 ML/MIN; Glucose 87 mg/dL (74-106); Potassium 3.8 mmol/L (3.5-5.1); SGOT/AST 32 U/L (17-59); SGPT/ALT 25 U/L (0-50); SODIUM 142 mmol/L (137-145); Total Protein 7.8 g/dL (6.3-8.2)
[2022-10-22 21:04] VITALS: BP 134/81
[2022-10-22 21:32] VITALS: PULSE 84
[2022-10-22 21:34] VITALS: O2SAT 98
--- NOTE | 2022-10-23 08:40 | XRAY ---
Indication: Abscess. Multiple contiguous axial images obtained through the abdomen and pelvis using 80 cc Isovue 370 contrast. Cutaneous BB placed over region of interest. Impression: None Lung bases clear. Heart not enlarged. Cutaneous BB is seen left buttock where there is mild cutaneous/subcutaneous soft tissue swelling/induration favoring cellulitis. No walled off fluid collection/abscess. A few small bilateral inguinal lymph nodes, largest on the left measuring 1.5 cm presumed reactive. Noncontrasted stomach and bowel loops appear nonobstructed with normal appendix. No free fluid/air. Remaining liver, gallbladder, pancreas, spleen, adrenal glands, kidneys, ureters, bladder, and aorta are normal in CT appearance and attenuation. No pathologic retroperitoneal lymphadenopathy. Osseous structures intact with incidental small inferior L3 Schmorl node and L5 limbus vertebrae. Impression: 1. Left gluteal cellulitis. Negative for underlying abscess. Small reactive bilateral inguinal lymph nodes. 2. Remaining CT abdomen/pelvis with contrast exam is negative.
== END 2022-10-22 21:39 | disposition home or self-care (01) ==
LOC: ED 18:18
DX: L03.317 Cellulitis of buttock (principal); D72.829 Elevated white blood cell count, unspecified; Z79.899 Other long term (current) drug therapy; Z28.310 Unvaccinated for COVID-19; Z72.0 Tobacco use
CPT/HCPCS: 36000; 36415; 74177; 80053; 83605; 85025; 87040; 94760; 96360; 96365; 99284

== ENCOUNTER 2023-11-29 14:09 | Emergency (ER) | payer MEDICAID, OTHER ==
[2023-11-29 14:43] VITALS: TEMP 98.1; O2SAT 97
[2023-11-29] MEDS ORDERED: CLEOCIN 150 MG CAPSULE ONE (15:59)
--- NOTE | 2023-11-29 16:00 | ERPHSYRPT ---
- History of Present Illness Time Seen by Provider: 11/29/23 15:45 Source: patient Exam Limitations: no limitations Patient Subjective Stated Complaint: C/O "boil" to right inner buttocks. Patient states he noticed it a few days ago. Patient also indicates that he has had this before in the exact same location but is unsure what is causing this. Triage Nursing Assessment: Patient ambulated back to ER. He is alert and oriented. Skin tone normal. A hard, red area is present to right inner buttocks. Skin intact to area at this time. No pustule present. Physician History: For the past 2 days pt has had a painful abscess on the inner aspect of his right buttock; denies fever, chest pain, shortness of air; admits to frequent earaches. Allergies/Adverse Reactions: Penicillins Allergy (Verified 11/29/23 14:26) Sulfa (Sulfonamide Antibiotics) Allergy (Verified 11/29/23 14:26) Hx Tetanus, Diphtheria Vaccination/Date Given: Yes Hx Influenza Vaccination/Date Given: No Hx Pneumococcal Vaccination/Date Given: No Immunizations Up to Date: Yes Travel Risk - International Travel Have you traveled outside of the country in past 3 weeks: No - Emerging Infectious Disease Are you exhibiting symptoms associated with any current EIDs: No - Review of Systems Constitutional: No Fever Ears, Nose, & Throat: Ear Pain Respiratory: No Dyspnea Cardiac: No Chest Pain Skin: Other (abscess on right buttock) - Past Medical History Pertinent Past Medical History: Yes Respiratory History: Asthma Other Medical History: tumors removed from scrotum as an , benign tumors removed from chest, psoriasis, repeat abcesses to buttocks (right) - Past Surgical History Past Surgical History: Yes Other Surgical History: tumors removed from chest - Social History Smoking Status: Current every day smoker How long have you smoked: 12 years Exposure to second hand smoke: Yes Drug Use: none Patient Lives Alone: No - Social Determinants of Health Will the patient participate in the screening: Yes Do you worry about a steady place to live?: No Do you have any problems with any of the following?: No known problems In the past 12 months,have you had to go without utilities?: No Transportation Issues: No Has anyone in your support network made you feel unsafe?: No Have you or anyone in your house had to go without enough: No - Nursing Vital Signs Nursing Vital Signs: Initial Vital Signs Temperature 98.1 F 11/29/23 14:25 Pulse Rate 92 H 11/29/23 14:25 Respiratory Rate 17 11/29/23 14:25 Blood Pressure 117/65 11/29/23 14:25 O2 Sat by Pulse Oximetry 97 11/29/23 14:25 Pain Scale Pain Intensity 4 - Physical Exam General Appearance: alert Eye Exam: PERRL/EOMI Ears, Nose, Throat Exam: TM abnormal (R) (TM erythema) Neck Exam: normal inspection Respiratory Exam: lungs clear Cardiovascular Exam: normal heart sounds Gastrointestinal/Abdomen Exam: normal bowel sounds Extremity Exam: No pedal edema Neurologic Exam: alert, cooperative Skin Exam: other (abscess on inner aspect of right buttock) SpO2 Interpretation: normal SpO2: 97 O2 Delivery: Room Air Procedures - Incision and Drainage Time of Procedure: 16:15 Timeout: Performed Anesthesia: 1% Lidocaine cc's of anesthesia: 4 Blade Size: 11 I & D Procedure: betadine prep, culture obtained Results: large amount pus - Course Nursing assessment & vital signs reviewed: Yes Ordered Tests: Active Orders 24 hr Category Date Time Status Wound Care STAT Care 11/29/23 15:57 Active CULTURE,WOUND Stat Lab 11/29/23 16:19 Ordered Medication Summary Discontinued Medications Generic Name Dose Route Start Last Admin Trade Name Rigo PRN Reason Stop Dose Admin Clindamycin HCl 300 mg 11/29/23 15:54 11/29/23 16:01 Clindamycin Hcl 150 Mg Capsule PO 11/29/23 15:55 300 mg STAT ONE Administration Clindamycin HCl 300 mg 11/29/23 15:58 11/29/23 16:02 Clindamycin Hcl 150 Mg Capsule PO 11/29/23 15:59 Not Given STAT ONE Clindamycin HCl 300 mg 11/29/23 15:59 11/29/23 16:02 Clindamycin Hcl 150 Mg Capsule PO 11/29/23 16:00 Not Given STAT ONE Clindamycin HCl Confirm 11/29/23 15:59 Clindamycin Hcl 150 Mg Capsule Administered 11/29/23 16:00 Dose 300 mg .ROUTE .STK-MED ONE Ibuprofen 600 mg 11/29/23 16:27 Ibuprofen 600 Mg Tablet PO 11/29/23 16:28 STAT ONE Lidocaine HCl Confirm 11/29/23 16:03 Lidocaine Hcl 1% 20 Ml Mdv 20 Ml Ml Administered 11/29/23 16:04 Dose 5 ml .ROUTE .STK-MED ONE Lidocaine HCl 5 ml 11/29/23 16:12 11/29/23 16:14 Lidocaine Hcl 1% 20 Ml Mdv 20 Ml Ml IJ 11/29/23 16:13 5 ml STAT ONE Administration - Progress Progress: improved Counseled pt/family regarding: diagnosis, need for follow-up - Departure Departure Disposition: Home Clinical Impression: Abscess of right buttock Condition: Stable Critical Care Time: No Referrals: KANNAN BUSTAMANTE MD [Primary Care Provider] - Follow up/PCP as directed Instructions: Skin abscess drainage Additional Instructions: Follow up with private doctor tomorrow. Place gauze over wound for the next week. Forms: Work/School Release Form Prescriptions: clindamycin HCL [Clindamycin HCl] 300 mg PO Q6H #40 cap
[2023-11-29] MEDS: CLEOCIN 150 MG CAPSULE PO ONE ×3 (16:01→16:02)
[2023-11-29] MEDS ORDERED: XYLOCAINE 1% HCL 20 ML MDV ONE (16:03)
[2023-11-29] MEDS: XYLOCAINE 1% HCL 20 ML MDV IJ ONE (16:14)
[2023-11-29] MEDS ORDERED: MOTRIN 600 MG ONE (16:27)
[2023-11-29] MEDS: MOTRIN 600 MG PO ONE (16:28)
[2023-11-29 16:31] VITALS: BP 128/76; PULSE 84; RESP 18
== END 2023-11-29 16:34 | disposition home or self-care (01) ==
LOC: ED 14:09
DX: L02.31 Cutaneous abscess of buttock (principal); Z72.0 Tobacco use
CPT/HCPCS: 10060; 87070; 87077; 99283; A9270-GY

== ENCOUNTER 2024-05-29 23:51 | Emergency (ER) | payer MEDICAID, OTHER ==
[2024-05-30 00:04] VITALS: RESP 18; TEMP 97.6; O2SAT 97
--- NOTE | 2024-05-30 00:08 | ERPHSYRPT ---
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 pt states that he felt a burn in his rt foot Triage Nursing Assessment: pt ambulated, hopped into the er; pt is axo x4; c/o rt foot pain; pt states 8/10 pain to rt foot; swelling present to dorsal rt foot; strong rt pedal pulse; good cap refill to [facility]; skin PDW; no respiratory distress present; hypertensive Physician History: Patient was doing some martial arts and kicked his opponent. He now has pain in his right foot. It is on the midfoot on the dorsum and it radiates down to the plantar surface. There is no obvious deformities. It happened just prior to arrival. He has no other trauma. Allergies/Adverse Reactions: Penicillins Allergy (Verified 05/29/24 23:56) Sulfa (Sulfonamide Antibiotics) Allergy (Verified 05/29/24 23:56) Home Medications: No Reportable Medications [No Reported Medications] 05/29/24 [History] Hx Tetanus, Diphtheria Vaccination/Date Given: Yes Hx Influenza Vaccination/Date Given: No Hx Pneumococcal Vaccination/Date Given: No Travel Risk - International Travel Have you traveled outside of the country in past 3 weeks: No - Emerging Infectious Disease Are you exhibiting symptoms associated with any current EIDs: No - Review of Systems Constitutional: No Symptoms Eyes: No Symptoms Neurological: No Symptoms All Other Systems: Reviewed and Negative - Past Medical History Pertinent Past Medical History: Yes Respiratory History: Asthma Other Medical History: 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, benign tumors removed from chest, psoriasis, repeat abcesses to buttocks (right) - Past Surgical History Past Surgical History: Yes Other Surgical History: tumors removed from chest - Social History Smoking Status: Current every day smoker How long have you smoked: 12 years Exposure to second hand smoke: Yes Drug Use: none Patient Lives Alone: No - Social Determinants of Health Will the patient participate in the screening: Yes Do you worry about a steady place to live?: No Do you have any problems with any of the following?: No known problems In the past 12 months,have you had to go without utilities?: No Transportation Issues: No Has anyone in your support network made you feel unsafe?: No Have you or anyone in your house had to go without enough: No - Nursing Vital Signs Nursing Vital Signs: Initial Vital Signs Temperature 97.6 F 05/29/24 23:57 Pulse Rate 100 H 05/29/24 23:57 Respiratory Rate 18 05/29/24 23:57 Blood Pressure 147/90 05/29/24 23:57 O2 Sat by Pulse Oximetry 97 05/29/24 23:57 Pain Scale Pain Intensity 8 - Physical Exam General Appearance: no apparent distress Eyes, Ears, Nose, Throat Exam: normal ENT inspection Knees Exam: bilateral knee: non-tender, normal inspection, normal range of motion, no evidence of injury Ankle Exam: bilateral ankle: non-tender, normal inspection, normal range of motion, no evidence of injury Foot Exam: right foot: bone tenderness, pain, soft tissue tenderness, left foot: non-tender, normal inspection, normal range of motion, no evidence of injury Neuro/Tendon Exam: normal sensation, normal motor functions, normal tendon functions Mental Status Exam: alert, oriented x 3 Skin Exam: normal color, warm SpO2: 97 - Course Nursing assessment & vital signs reviewed: Yes Ordered Tests: Active Orders 24 hr Category Date Time Status FOOT (MINIMUM 3 VIEWS) Stat Exams 05/30/24 00:05 Taken - Progress Progress: unchanged Progress Note: Patient was stable throughout stay. He had an x-ray done. I read it. I did not see any abnormalities. Were going to put him in a walking boot and give him some crutches. I told him we call them if the radiologist sees a fracture that missed 05/30/24 00:18 Medical Desision Making - Diagnostic Testing Diagnostic test were ordered, analyzed, and reviewed by me: Yes Radiological Interpretation: Interpreted by me - Risk of complications Minimal Risk: Minimal risk of morbidity - Departure Departure Disposition: Home Clinical Impression: Foot contusion Condition: Stable Critical Care Time: No Referrals: KANNAN BUSTAMANTE MD [Primary Care Provider] - Follow up/PCP as directed Instructions: Contusion (DC)
[2024-05-30 00:22] VITALS: BP 141/78; PULSE 95
--- NOTE | 2024-05-30 08:47 | XRAY ---
Indication: Pain following injury. Comparison: None 3 nonweightbearing views right foot demonstrates tiny posterior heel spur. No other bony, articular, or soft tissue abnormalities.
== END 2024-05-30 00:28 | disposition home or self-care (01) ==
LOC: ED 23:51
DX: S90.31XA Contusion of right foot, initial encounter (principal); W51.XXXA Accidental striking against or bumped into by another person, initial encounter; Y93.75 Activity, martial arts; Z72.0 Tobacco use
CPT/HCPCS: 73630; 99282; 99283; L4386